=== PATIENT | male | born 1970 | race Caucasian/White ===

== ENCOUNTER 2017-02-20 17:04 | Emergency (ER) | payer BC, SELFPAY ==
[2017-02-20 17:49] VITALS: BP 158/90; PULSE 99; RESP 22; TEMP 37.1; O2SAT 95; BMI 46.6
[2017-02-20 18:02] LABS: UTC Influenza A Antigen Positive (Negative)
[2017-02-20 18:03] LABS: UTC Influenza B Antigen Negative (Negative)
--- NOTE | 2017-02-20 18:12 | HMH.EDUTC ---
[facility] [place]ression: Influenza A Disposition: Home, Self-Care Condition on Discharge: Good Instructions: DI for Influenza -- Adult Additional Instructions: * Start Tamiflu YESENIA if you are going to take it. Discussed risks and possible benefits. * Lots of rest * Increase fluids, water, gatorade, powerade, pedialyte if /toddler/child * Monitor Temp. Tylenol every 4 hours as needed no more then 5 times a day or 4000mg in 24 hours and/or ibuprofen every 6 hours as needed no more then 3200mg in 24 hours (as long as your primary care doctor has told you that it is ok to take both) for fever/aches/pain. ER if fever no less than 101 despite tylenol and Ibuprofen * You (or your child) are contagious until no fever, aches, chills x 24 hours without medication for symptoms. Prescriptions: Oseltamivir Phosphate [Tamiflu 75mg Capsule] 75 mg PO BID #10 cap Referrals: Manuel Hall MD [Primary Care Provider] - (IMMEDIATELY for new or worsening symptoms, improvement followed by suddenly feeling worse OR no noticeable improvement over the next 48-72 hours. 911 for difficulty breathing ) Time of Disposition: 18:22 Medical Decision Making Vital Signs: 02/20/17 17:49 Temperature 98.8 F Temperature Source Oral Pulse Rate [Right Brachial] 99 H Respiratory Rate 22 Blood Pressure [Right Arm] 158/90 Blood Pressure Mean [Right Arm] 112 Blood Pressure Source [Right Arm] Automatic Cuff Blood Pressure Position [Right Arm] Sitting 02 Sat by Pulse Oximetry 95 Oxygen Delivery Method Room Air - Lab Data Lab results reviewed: Yes: I reviewed the patient's lab results. Lab Results 02/20/17 17:37: Influenza Type A Ag Positive A, Influenza Type B Ag Negative - Josse Inquiry Pt receiving controlled substance: No [facility] [place] - General Stated complaint: fever,body pain Time Seen by Provider: 02/20/17 18:00 Mode of Arrival: Ambulatory Source of Information: Patient Limitations: No Limitations Description of Symptoms (Recalled from Triage Doc. by RN): pt c/o cough, bodyache HEENT Symptoms (Recalled from RN notes): No Resp Symptoms (Recalled from RN notes): Yes (cough) Skin Symptoms (Recalled from RN notes): No MS Symptoms (Recalled from RN notes): Yes (bodyaches) Functional Status (Recalled from RN notes): n/a - History of Present Illness Provider Complaint: c/o aches, chills, sore throat, skin hurts. Started last night like a light switch . 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 Nyquil last night helped. - Related Data Previous Rx's Medication Instructions Recorded Oseltamivir Phosphate [Tamiflu 75 mg PO BID #10 cap 02/20/17 75mg Capsule] Allergies Allergy/AdvReac Type Severity Reaction Status Date / Time No Known Allergies Allergy Unverified 01/26/17 14:53 - Worker's Comp Is this a Worker's Comp case?: No [facility] History I have reviewed the patient's past medical history: Yes (gout, hypothyroid) Other Surgeries: Yes: Other (vasectomy and heart cath) - *Social History Smoking Status: Never smoker Alcohol Intake: never - Psychiatric History Expresses thoughts of harming self/others: None Suicide Plan Description: No Plan ROS Obtained: Yes Systems reviewed as appropriate & no additional complaints - Constitutional Constitutional: Denies anorexia, Reports body ache, Reports chills, Reports fatigue - Eyes Eyes: Denies change in vision, Denies eye pain - ENT Ears, Nose, Mouth, and Throat: Denies difficulty swallowing, Reports otalgia (w/ swallowing), Reports nasal congestion, Reports nasal discharge, Reports pain with swallowing, Reports post nasal drip, Denies sinus pain, Reports sinus pressure, Reports sore throat, Denies throat swelling - Cardiovascular Cardiovascular: Denies chest pain, Denies irregular heart rhythm - Respiratory Respiratory: No chest congestion, Yes non-productive cough, No dyspnea, No wheezing - Gastrointestinal Gastr
--- NOTE | 2017-02-20 18:20 | ED_ITS ---
[facility] [place] Disposition Clinical Impression: Influenza A Disposition: Home, Self-Care Condition on Discharge: Good Instructions: DI for Influenza -- Adult Additional Instructions: * Start Tamiflu YESENIA if you are going to take it. Discussed risks and possible benefits. * Lots of rest * Increase fluids, water, gatorade, powerade, pedialyte if /toddler/child * Monitor Temp. Tylenol every 4 hours as needed no more then 5 times a day or 4000mg in 24 hours and/or ibuprofen every 6 hours as needed no more then 3200mg in 24 hours (as long as your primary care doctor has told you that it is ok to take both) for fever/aches/pain. ER if fever no less than 101 despite tylenol and Ibuprofen * You (or your child) are contagious until no fever, aches, chills x 24 hours without medication for symptoms. Prescriptions: Oseltamivir Phosphate [Tamiflu 75mg Capsule] 75 mg PO BID #10 cap Referrals: Manuel Hall MD [Primary Care Provider] - (IMMEDIATELY for new or worsening symptoms, improvement followed by suddenly feeling worse OR no noticeable improvement over the next 48-72 hours. 911 for difficulty breathing ) Time of Disposition: 18:22 Medical Decision Making Vital Signs: 02/20/17 17:49 Temperature 98.8 F Temperature Source Oral Pulse Rate [Right Brachial] 99 H Respiratory Rate 22 Blood Pressure [Right Arm] 158/90 Blood Pressure Mean [Right Arm] 112 Blood Pressure Source [Right Arm] Automatic Cuff Blood Pressure Position [Right Arm] Sitting 02 Sat by Pulse Oximetry 95 Oxygen Delivery Method Room Air - Lab Data Lab results reviewed: Yes: I reviewed the patient's lab results. Lab Results 02/20/17 17:37: Influenza Type A Ag Positive A, Influenza Type B Ag Negative - Josse Inquiry Pt receiving controlled substance: No [facility] [place] HPI - General Stated complaint: fever,body pain Time Seen by Provider: 02/20/17 18:00 Mode of Arrival: Ambulatory Source of Information: Patient Limitations: No Limitations Description of Symptoms (Recalled from Triage Doc. by RN): pt c/o cough, bodyache HEENT Symptoms (Recalled from RN notes): No Resp Symptoms (Recalled from RN notes): Yes (cough) Skin Symptoms (Recalled from RN notes): No MS Symptoms (Recalled from RN notes): Yes (bodyaches) Functional Status (Recalled from RN notes): n/a - History of Present Illness Provider Complaint: c/o aches, chills, sore throat, skin hurts. Started last night like a light switch . 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 Nyquil last night helped. - Related Data Previous Rx's Medication Instructions Recorded Oseltamivir Phosphate [Tamiflu 75 mg PO BID #10 cap 02/20/17 75mg Capsule] Allergies Allergy/AdvReac Type Severity Reaction Status Date / Time No Known Allergies Allergy Unverified 01/26/17 14:53 - Worker's Comp Is this a Worker's Comp case?: No [facility] History I have reviewed the patient's past medical history: Yes (gout, hypothyroid) Other Surgeries: Yes: Other (vasectomy and heart cath) - *Social History Smoking Status: Never smoker Alcohol Intake: never - Psychiatric History Expresses thoughts of harming self/others: None Suicide Plan Description: No Plan ROS Obtained: Yes Systems reviewed as appropriate & no additional complaints - Constitutional Constitutional: Denies anorexia, Reports body ache, Reports chills,
[2017-02-20 18:34] VITALS: BP 158/90; PULSE 68; RESP 16; TEMP 37.7; O2SAT 96
== END 2017-02-20 18:35 | disposition home or self-care (01) ==
PROVIDERS: Emergency Provider Nurse Practitioner Family; Family Provider Nurse Practitioner; PCP Family Medicine
DX: J09.X2 Influenza due to identified novel influenza A virus with other respiratory manifestations (principal)
CPT/HCPCS: 87804; 99202

== ENCOUNTER → 2017-10-24 09:43 | Outpatient (REF) | payer BC, SELFPAY | LOC: LAB 09:43 | PROVIDERS: Visit Provider Emergency Medicine | DX: J02.9 Acute pharyngitis, unspecified (principal) ==

== ENCOUNTER → 2018-07-21 09:02 | Outpatient (CLI) | payer BC, SELFPAY ==
[2018-07-21 11:07] LABS: Basophils # 0.1 K/mm3 (0-0.2); Basophils % 0.9 % (0.1-2.0); Eosinophils # 0.1 K/mm3 (0.0-0.4); Eosinophils % 0.8 % (0.1-12.0); Hematocrit 51.6 % (42.0-52.0); Hemoglobin 15.8 g/dL (14.1-18.0); Lymphocytes # 2.7 K/mm3 (0.7-4.5); Lymphocytes % 44.4 % (10-50); Mean Corpuscular HGB Conc 30.6 g/dL (31.8-35.4); Mean Corpuscular Hemoglobin 29.2 pg (27.0-31.2); Mean Corpuscular Volume 95.4 fl (80-94); Mean Platelet Volume 7.7 fl (7.4-10.4); Monocytes # 0.3 K/mm3 (0.1-1.0); Monocytes % 4.6 % (1.7-9.3); Neutrophils % 49.3 % (37.0-80.0); Platelet Count 233 K/mm3 (142-424); Red Blood Count 5.41 M/mm3 (4.60-6.20); Red Cell Distribution Width 15.5 % (11.5-17.5); White Blood Count 6.1 K/mm3 (4.8-10.8)
[2018-07-21 12:40] LABS: Anion Gap 13.5 mEq/L (5-15); Blood Urea Nitrogen 18 mg/dL (7-18); Calcium 9.3 mg/dL (8.5-10.1); Carbon Dioxide 27 mmol/L (21.0-32.0); Chloride 106 mmol/L (98-107); Creatinine,Serum 0.84 mg/dL (0.70-1.30); Estimated Glomerular Filt Rate 97 ml/min (>60); GFR (African American) 118 ML/MIN (>60); Glucose 68 mg/dL (74-106); Potassium 4.5 mmoL/L (3.5-5.1); Sodium 142 mmol/L (136-145)
== END ==
PROVIDERS: Visit Provider Colon & Rectal Surgery
DX: K63.2 Fistula of intestine (principal)
CPT/HCPCS: 36415; 80048; 85025

== ENCOUNTER → 2020-03-18 16:12 | Outpatient (CLI) | payer BC, SELFPAY | PROVIDERS: PCP Family Medicine; Visit Provider Family Medicine | DX: Z20.822 Contact with and (suspected) exposure to COVID-19 (principal) | CPT/HCPCS: U0003 ==

== ENCOUNTER 2020-03-31 16:42 | Emergency (ER) | payer BC, SELFPAY ==
[2020-03-31 17:30] VITALS: BP 137/87; PULSE 82; RESP 18; TEMP 37.1; O2SAT 99; BMI 36.2
--- NOTE | 2020-03-31 18:09 | HMH.EDUTC ---
[facility] [place] Dis[place] Clinical Impression: Encounter for laboratory testing for COVID-19 virus, Viral syndrome Disposition: Home, Self-Care Condition on Discharge: Good Instructions: Ondansetron, DI for COVID-19 (Suspected or Confirmed ), Coronavirus Disease 2019, Preventing the Spread of Coronavirus Discharge Instructions Additional Instructions: *Monitor Temp, Over the counter Motrin or Tylenol as directed/as needed Tylenol every 4 hours and Motrin every 6 hours (as long as your family doctor has told you that you can take it) for fever or pain. and straight to ER if unable to lower temp less than 101.0 after medication given *Warm salt water gargles may help to soothe the throat *Throat Lozenges *Warm fluids like tea with honey may help to soothe the throat *Sleep elevated *Humidifier/Vaporizer Follow up IMMEDIATELY for new or worsening symptoms or no Noticeable improvement over the next 48-72 hours. 911 for difficulty breathing or swallowing You were tested for today for COVID19 your test result should be back in the next 24-48 hours, you may call to the [facility] to see if your test results are back in the next 48 hours [phone] [facility] hours are 9am-9pm You was given a handout with instructions for Self Quarantine and Self isolation for while you wait on test results and what to do if they are positive If you are positive the Health Dept will be contacting you also Prescriptions: Ondansetron [Zofran 4mg ODT] 4 mg PO TIDP PRN #6 tab PRN Reason: Nausea Transmission Status: Pending to [facility] Referrals: Manuel Hall MD [Primary Care Provider] - As needed Forms: Work/School Release Time of Disposition: 18:13 Medical Decision Making - Josse Inquiry Pt receiving controlled substance: No Josse was queried for this patient: No Vital Signs: 03/31/20 17:30 Temperature 98.7 F Temperature Source Oral Pulse Rate [Right Brachial] 82 Respiratory Rate 18 Blood Pressure [Right Arm] 137/87 Blood Pressure Mean [Right Arm] 103 Blood Pressure Source [Right Arm] Automatic Cuff Blood Pressure Position [Right Arm] Sitting 02 Sat by Pulse Oximetry 99 Oxygen Delivery Method Room Air Orders (Tests/Meds): ORDERS Category Date Time Status Covid-19 Nasal PCR ([facility]) Routine Lab 03/31/20 17:28 Received [facility] [place] HPI - General Stated complaint: SYMPTOMS Time Seen by Provider: 03/31/20 18:09 Mode of Arrival: Ambulatory Source of Information: Patient Limitations: No Limitations Description of Symptoms (Recalled from Triage Doc. by RN): PATIENT REPORTS HE WOKE UP THIS MORNING WITH HEADACHE, BODY ACHES, FEVER, NAUSEA, AND FATIGUE. HIS HAD HER SECOND COVID VACCINE ON WEDNESDAY AND WAS SICK YESTERDAY AND LAST NIGHT HEENT Symptoms (Recalled from RN notes): Yes Resp Symptoms (Recalled from RN notes): No Skin Symptoms (Recalled from RN notes): No MS Symptoms (Recalled from RN notes): No Functional Status (Recalled from RN notes): WNL - History of Present Illness Provider Complaint: Patient states that he was suppose to have second COVID vaccine on Wednesday but had had flu vaccine a week ago so was unable to take it State that his took hers and for a couple days wasnt feeling well States that he started feeling bad yesterday with body aches and chills and this morning woke up still having body aches, chills, headache and nausea so he came in to get tested - Related Data Home Medications Medication Instructions Recorded Confirmed allopurinol 300 mg tablet 300 mg PO DAILY 30 Days #30 tab 10/23/17 03/31/20 levothyroxine 75 mcg tablet 75 mcg PO DAILY 30 Days #30 tab 10/23/17 03/31/20 Previous Rx's Medication Instructions Recorded Ondansetron [Zofran 4mg ODT] 4 mg PO TIDP PRN #6 tab 03/31/20 Allergies Allergy/AdvReac Type Severity Reaction Status Date / Time No Known Allergies Allergy Verified 10/23/17 12:44 - Worker's Comp Is this a Worker's Comp case?: No [facility] History - Hepatitis A
[2020-03-31 18:19] VITALS: BP 137/87; PULSE 82; RESP 18; TEMP 37.1; O2SAT 99
--- NOTE | 2020-04-01 09:31 | PC.NURSE ---
patient notified of positive covid results
== END 2020-03-31 18:21 | disposition home or self-care (01) ==
PROVIDERS: Emergency Provider Nurse Practitioner; PCP Family Medicine
DX: U07.1 COVID-19 (principal); E11.9 Type 2 diabetes mellitus without complications; E03.9 Hypothyroidism, unspecified; Z79.899 Other long term (current) drug therapy
CPT/HCPCS: 99202; G0463; U0003

== ENCOUNTER 2020-04-03 07:57 | Outpatient (CLI) | payer BC, SELFPAY ==
[2020-04-03] VITALS (8 sets, daily range): BP systolic 126–155; BP diastolic 81–91; PULSE 58–78; RESP 17–20; TEMP 36.6–36.9; O2SAT 95–98
== END 2020-04-03 10:11 | disposition home or self-care (01) ==
PROVIDERS: PCP Family Medicine; Visit Provider Family Medicine
DX: U07.1 COVID-19 (principal)
CPT/HCPCS: 96365

== ENCOUNTER 2020-05-23 16:08 | Emergency (ER) | payer BC, SELFPAY ==
[2020-05-23 16:37] LABS: UTC Strep Screen (Rapid) Negative (Negative)
[2020-05-23 16:42] VITALS: RESP 16; TEMP 37.1; O2SAT 99; BMI 36.6
--- NOTE | 2020-05-23 16:43 | HMH.EDUTC ---
[facility] Disposition Clinical Impression: Pharyngitis Qualifiers: Pharyngitis/tonsillitis etiology: unspecified etiology Qualified Code(s): J02.9 - Acute pharyngitis, unspecified Disposition: Home, Self-Care Condition on Discharge: Good Instructions: Sore Throat, DI for Pharyngitis/Tonsillopharyngitis -- Adult Additional Instructions: Drink plenty of fluids. Take tylenol or ibuprofen for pain or fever. Take the medications as directed. Follow up with your regular doctor. GO TO THE ER FOR ANY WORSENING SYMPTOMS Prescriptions: Amoxicillin/Potassium Clav [Augmentin 875-125 Tablet] 1 tab PO Q12H 10 Days #20 tab Transmission Status: Received by [facility] predniSONE [Deltasone 10mg tablet] 10 mg PO BID 3 Days #6 tab Transmission Status: Received by [facility] Referrals: Manuel Hall MD [Primary Care Provider] - Forms: Work/School Release Time of Disposition: 16:52 Medical Decision Making - Medical Records Medical records reviewed: No: I reviewed the patient's medical records. - Josse Inquiry Pt receiving controlled substance: No Vital Signs: 05/23/20 16:42 05/23/20 16:52 Temperature 98.7 F 98.7 F Temperature Source Oral Oral Pulse Rate 90 Respiratory Rate 16 14 Blood Pressure 131/85 02 Sat by Pulse Oximetry 99 Oxygen Delivery Method Room Air Room Air - Lab Data Lab results reviewed: Yes: I reviewed the patient's lab results. Lab Results 05/23/20 16:30: Strep Scn Rapid Clinic Negative Orders (Tests/Meds): ORDERS Category Date Time Status Strep Screen Confirmation Stat Micro 05/23/20 16:30 Received [facility] HPI - General Stated complaint: sore throat Time Seen by Provider: 05/23/20 16:43 - History of Present Illness Provider Complaint: He states that for the past 2 days he has had a worsening sore throat. 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 He has had covid-19 and he has had the covid-19 vaccine in the past. He states that he does not feel like he has covid-19. - Related Data Home Medications Medication Instructions Recorded Confirmed allopurinol 300 mg tablet 300 mg PO DAILY 30 Days #30 tab 10/23/17 03/31/20 levothyroxine 75 mcg tablet 75 mcg PO DAILY 30 Days #30 tab 10/23/17 03/31/20 Previous Rx's Medication Instructions Recorded Ondansetron [Zofran 4mg ODT] 4 mg PO TIDP PRN #6 tab 03/31/20 Amoxicillin/Potassium Clav 1 tab PO Q12H 10 Days #20 tab 05/23/20 [Augmentin 875-125 Tablet] predniSONE [Deltasone 10mg tablet] 10 mg PO BID 3 Days #6 tab 05/23/20 Allergies Allergy/AdvReac Type Severity Reaction Status Date / Time No Known Allergies Allergy Verified 10/23/17 12:44 [facility] History - Hepatitis A Screen Attestation statement:: This patient has been screened for Hepatitis A risk factors. I have reviewed the patient's past medical history: Yes Medical History: Reports:: Diabetes Mellitus Type 2 Other Medical History: Reports: Hypothyroidism Comment: Gout Other Surgeries: Yes: Other Comment: vasectomy - Social History Smoking Status: Never smoker Alcohol Intake: never Alcohol Intake Frequency:: holidays/special occasions only Substance Use Type: denies use Occupational Status: employed ROS Obtained: Yes All systems reviewed & no additional complaints - Constitutional Constitutional: Denies body ache, Reports chills, Denies fever(s), Reports poor appetite, Reports malaise - Eyes Eyes: Denies eye discharge - ENT Ears, Nose, Mouth, and Throat: Reports as per HPI - Cardiovascular Cardiovascular: Denies chest pain - Respiratory Respiratory: Denies chest congestion, Reports cough, Denies dyspnea, Denies stridor, Denies wheezing Physical Exam - General General appearance: alert, in no apparent distress - Head Head exam: atraumatic, normocephalic, normal inspection - Eye Eye exam: Present: normal appearance, PERRL, EOMI - ENT ENT exam
[2020-05-23 16:52] VITALS: BP 131/85; PULSE 90; RESP 14; TEMP 37.1; O2SAT 99
== END 2020-05-23 16:54 | disposition home or self-care (01) ==
PROVIDERS: Emergency Provider Nurse Practitioner Family; PCP Family Medicine
DX: J02.9 Acute pharyngitis, unspecified (principal); E03.9 Hypothyroidism, unspecified; E11.9 Type 2 diabetes mellitus without complications; Z79.899 Other long term (current) drug therapy
CPT/HCPCS: 87880; 99202; G0463

== ENCOUNTER 2020-10-07 09:01 | Emergency (ER) | payer BC, SELFPAY ==
[2020-10-07 09:05] VITALS: BP 137/83; PULSE 91; RESP 20; TEMP 37; O2SAT 97; BMI 34.8
[2020-10-07 09:39] VITALS: BP 137/83; PULSE 91; RESP 20; TEMP 37; O2SAT 97
--- NOTE | 2020-10-07 09:39 | HMH.EDUTC ---
[facility] [place] Impression: Viral syndrome, Encounter for laboratory testing for COVID-19 virus Disposition: Home, Self-Care Condition on Discharge: Good Instructions: DI for COVID-19 (Suspected or Confirmed ), Preventing the Spread of Coronavirus Discharge Instructions Additional Instructions: *Monitor Temp, Over the counter Motrin or Tylenol as directed/as needed Tylenol every 4 hours and Motrin every 6 hours (as long as your family doctor has told you that you can take it) for fever or pa-in. and straight to ER if unable to lower temp less than 101.0 after medication given *Warm salt water gargles may help to soothe the throat *Throat Lozenges *Warm fluids like tea with honey may help to soothe the throat *Sleep elevated *Humidifier/Vaporizer Over the counter Cough mediacations like Robitussin may help with cough if you can take it Your throat swab was sent for culture. Those results are typically sent to your primary care. Be sure to follow up in 2-3 days with your family doctor/primary care physician if no improvement so they can review those result and treat if necessary. If you don?t have a primary care doctor, I recommend you get one but in the mean time, you will have to return to a walk in clinic Follow up IMMEDIATELY for new or worsening symptoms or no Noticeable improvement over the next 48-72 hours. 911 for difficulty breathing or swallowing You were tested for today for COVID19 your test result should be back in the next 24-48 hours, [facility] the [facility] to see if your test results are back in the next 48 it may say detected that means your result is positive or not detected if you are negative.You was given handout instructions on how log on and see your results. If you do not have internet access you may call the [facility] for your results [phone] You was given a handout with instructions for Self Quarantine and Self isolation for while you wait on test results and what to do if they are positive If you are positive the Health Dept will be contacting you also Make sure to take your Vitamins Vit. C Vit D and Zinc if you can take them Referrals: Manuel Hall MD [Primary Care Provider] - As needed Forms: Work/School Release Medical Decision Making - Josse Inquiry Pt receiving controlled substance: No Josse was queried for this patient: No Vital Signs: 10/07/20 09:05 Temperature 98.6 F Temperature Source Oral Pulse Rate [Right Brachial] 91 H Respiratory Rate 20 Blood Pressure [Right Arm] 137/83 Blood Pressure Mean [Right Arm] 101 Blood Pressure Source [Right Arm] Automatic Cuff Blood Pressure Position [Right Arm] Sitting 02 Sat by Pulse Oximetry 97 Oxygen Delivery Method Room Air - Lab Data Lab results reviewed: Yes: I reviewed the patient's lab results. Orders (Tests/Meds): ORDERS Category Date Time Status Covid-19 Nasal PCR ([facility]) Routine Lab 10/07/20 09:20 [place] [facility] [place] - General Stated complaint: body aches, headache, soa, Time Seen by Provider: 10/07/20 09:39 Mode of Arrival: Ambulatory Source of Information: Patient Limitations: No Limitations Description of Symptoms (Recalled from Triage Doc. by RN): PATIENT C/O HEADACHE, COUGH, BODY ACHES, AND LOW-GRADE FEVER. 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
[2020-10-07 21:16] LABS: UTC Strep Screen (Rapid) Negative (Negative)
--- NOTE | 2020-10-08 13:13 | PC.NURSE ---
pt aware of positive results
== END 2020-10-07 09:50 | disposition home or self-care (01) ==
PROVIDERS: Emergency Provider Nurse Practitioner; PCP Family Medicine
DX: U07.1 COVID-19 (principal); B34.9 Viral infection, unspecified; E03.9 Hypothyroidism, unspecified; E11.9 Type 2 diabetes mellitus without complications; Z79.899 Other long term (current) drug therapy
CPT/HCPCS: 87880; 99203; G0463; U0003

== ENCOUNTER 2021-03-01 13:11 | Emergency (ER) | payer BC, SELFPAY ==
--- NOTE | 2021-03-01 14:11 | XR_ITS ---
PROCEDURE INFORMATION: Exam: XR Left Foot Exam date and time: 03/01/2021 2:11 PM Age: 51 years old Clinical indication: Pain; Foot; Left TECHNIQUE: Imaging protocol: XR Left foot. Views: 3 or more views. COMPARISON: CR [id number] XR foot LT min 3V 02/24/2018 6:22 PM FINDINGS: Bones/joints: Mild osteoarthritis, as manifested predominantly by decreased joint space and marginal osteophyte formation. This is predominantly affecting the tibiotalar joint and tarsal metatarsal joints. There is mild osteoarthritis to the 1st metatarsophalangeal joint appreciated as well. There is a tiny plantar calcaneal spur. Small posterior calcaneal enthesophyte. There is no evidence of acutely displaced fractures. There is no evidence of joint dislocation. No aggressive osseous lesions. Soft tissues: There is no significant soft tissue swelling. IMPRESSION: Mild diffuse osteoarthritis without acute skeletal pathology.
[2021-03-01 14:12] VITALS: BP 143/93; PULSE 62; RESP 14; TEMP 36.6; O2SAT 98; BMI 37.3
--- NOTE | 2021-03-01 14:25 | HMH.EDUTC ---
[facility] [place] Disposition Clinical Impression: Foot pain, left Disposition: Home, Self-Care Condition on Discharge: Good Instructions: DI for Foot Pain Additional Instructions: freeze bottle of water , roll on bottom of foot with socks on 20 mins every hour for comfort steroids motrin as needed follow up with Dr Luu- call wednesday for appointment if symptoms worsen return Prescriptions: predniSONE [Prednisone 20mg Tab] 20 mg PO BID #10 tab Prescription Printed Referrals: Manuel Hall MD [Primary Care Provider] - Linda Luu DPM [Staff Physician] - Time of Disposition: 14:51 Medical Decision Making - Josse Inquiry Pt receiving controlled substance: No Vital Signs: 03/01/21 14:12 Temperature 97.9 F Temperature Source Temporal Artery Scan Pulse Rate [Left] 62 Respiratory Rate 14 Blood Pressure [Right Arm] 143/93 H Blood Pressure Mean [Right Arm] 109 02 Sat by Pulse Oximetry 98 Orders (Tests/Meds): ORDERS Category Date Time Status XR foot LT min 3V Stat Exams 03/01/21 14:11 Taken [facility] [place] HPI - General Chief complaint: Urgent Treatment Center Stated complaint: left foot pain Time Seen by Provider: 03/01/21 14:26 Mode of Arrival: Ambulatory Source of Information: Patient Limitations: No Limitations Description of Symptoms (Recalled from Triage Doc. by RN): pt c/o L foot pain. pt states the pain runs along the outside of his foot. no injury noted. x3 wks HEENT Symptoms (Recalled from RN notes): No Resp Symptoms (Recalled from RN notes): No Skin Symptoms (Recalled from RN notes): No MS Symptoms (Recalled from RN notes): Yes (L foot pain) Functional Status (Recalled from RN notes): wnl - History of Present Illness Provider Complaint: 51 yr old male presents with c/o L foot pain. pt states the pain runs along the outside of his foot. no injury noted. x3 wks, hx of gout. pt states it does not feel like a gout flare, pt states pain improves if he doesnt wear shoes - Related Data Home Medications Medication Instructions Recorded Confirmed allopurinol 300 mg tablet 300 mg PO DAILY 30 Days #30 tab 10/23/17 10/07/20 levothyroxine 75 mcg tablet 75 mcg PO DAILY 30 Days #30 tab 10/23/17 10/07/20 Previous Rx's Medication Instructions Recorded predniSONE [Prednisone 20mg 20 mg PO BID #10 tab 03/01/21 Tab] Allergies Allergy/AdvReac Type Severity Reaction Status Date / Time No Known Allergies Allergy Verified 10/23/17 12:44 - Worker's Comp Is this a Worker's Comp case?: No [facility] History - Hepatitis A Screen Drug use history?: No High risk sexual behaviors?: No History of sexually transmitted infection?: No Currently employed?: No Childcare worker?: No Do you have indoor plumbing?: Yes Do you have electricity?: Yes Attestation statement:: This patient has been screened for Hepatitis A risk factors. I have reviewed the patient's past medical history: Yes Medical History: Reports:: Diabetes Mellitus Type 2 Other Medical History: Reports: Hypothyroidism Comment: Gout Other Surgeries: Yes: Other Comment: vasectomy - Social History Smoking Status: Never smoker Alcohol Intake: never Alcohol Intake Frequency:: holidays/special occasions only Substance Use Type: denies use Occupational Status: employed ROS Obtained: Yes Systems reviewed as appropriate & no additional complaints - Constitutional Constitutional: Reports system reviewed and no additional complaints, except as docu, Denies fever(s) - Eyes Eyes: Reports system reviewed and no additional complaints, except as docu, Denies dry eyes - ENT Ears, Nose, Mouth, and Throat: Reports system reviewed and no additional complaints, except as docu, Denies sore throat - Cardiovascular Cardiovascular: Reports system reviewed and no additional complaints, except as docu, Denies chest pain - Respiratory Respiratory: Reports system reviewed and no additional complaints, except as docu, Denies cough - Gastroi
[2021-03-01 14:57] VITALS: BP 143/93; PULSE 62; RESP 14; TEMP 36.6
== END 2021-03-01 15:00 | disposition home or self-care (01) ==
PROVIDERS: Emergency Provider Nurse Practitioner Family; PCP Family Medicine
DX: M79.672 Pain in left foot (principal); E11.9 Type 2 diabetes mellitus without complications
CPT/HCPCS: 73630; 99202; G0463

== ENCOUNTER → 2021-04-26 11:12 | Outpatient (CLI) | payer BC, SELFPAY | PROVIDERS: PCP Internal Medicine Adolescent Medicine; Visit Provider Surgery | DX: Z01.812 Encounter for preprocedural laboratory examination (principal); Z11.52 Encounter for screening for COVID-19; Z12.11 Encounter for screening for malignant neoplasm of colon | CPT/HCPCS: C9803; U0003; U0005 ==

== ENCOUNTER 2021-04-29 10:06 | Day surgery (SDC) | payer BC, SELFPAY ==
[2021-04-25 14:24] VITALS: BMI 36.2
[2021-04-29] VITALS (7 sets, daily range): BP systolic 109–147; BP diastolic 58–89; PULSE 54–83; RESP 16–18; TEMP 36.3–36.6; O2SAT 93–100
--- NOTE | 2021-04-29 10:13 | P.PN_ITS ---
[facility] Anesthesia Checklist - Patient Identification Patient Identification: Arm Band - Structural Data Admitted From: Home Planned Operative Procedure/s: Colonoscopy Consent for Planned Operative Procedure(s) Verified: Yes - NPO Status Verified Time NPO: 05:00 (Prep) - Airway Assessment C-Spine Mobility Assessed: Yes TMJ Mobility Assessed: Yes Dentition: Good Dentition - Neurological Assessment Level of Consciousness: Awake Hx Seizures: No Numbness or tingling in extremities: No - Anesthesia Plan Anesthesia Risk discussed: Yes Anesthesia Plan: Verified ASA Class: II Anesthesia Type: MAC [facility] History I have reviewed the patient's past medical history: Yes Medical History: Reports:: Anxiety Denies:: Cancer, Diabetes Mellitus Type 1, Internal Pacemaker, MRSA *Have you ever received a pneumonia vaccine?: No *Have you received a flu vaccine this season?: Yes Other Medical History: Reports: Hypothyroidism Anesthesia experience/problems:: None Other Surgeries: Yes: Other. No: Pacemaker Amputation: No - *Social History Last grade of school completed: Advanced degree Smoking Status: Never smoker Alcohol Intake: never Alcohol Intake Frequency:: holidays/special occasions only Substance Use Type: denies use *Occupational Status:: employed *Travel in the last 8 weeks: None Family Hx:: Unable to obtain
--- NOTE | 2021-04-29 11:50 | HMH.SCOPE ---
- Procedure: Date: 04/29/21 Patient Date of :: 1970 Procedure Performed:: Colonoscopy Indications:: Screening (history of limited colonoscopy secondary to poor bowel preparation (outside facility)) Performing Provider:: Ayo Mariscal MD Referring Provider:: . Sedation:: Monitored anesthesia care Procedure:: After informed consent was obtained the patient was taken to the endoscopy suite. Sedation ensued after the patient was transferred to the left lateral decubitus position. Pulse, blood pressure, and oxygen saturation were monitored throughout the procedure. Digital rectal exam revealed no significant abnormality. The colonoscope was placed in position. The entire colon was evaluated. The colonoscope was carefully removed and the patient was transferred to recovery in stable condition. Please see findings and specimens below for detail. Findings:: Bowel preparation moderate Fairly severe tortuosity/spasticity Specimens:: None Recommendations:: Repeat colonoscopy in 2-3 years with extended bowel preparation secondary to persistent limitations in visualization (moderate to poor bowel preparation, spasticity, and tortuosity) Complications:: No immediate Estimated blood obtained (mL): 0
== END 2021-04-29 12:34 | disposition home or self-care (01) ==
LOC: OUTP 10:07
PROVIDERS: PCP Internal Medicine Adolescent Medicine; Visit Provider Surgery
PROC: 0DJD8ZZ Inspection of Lower Intestinal Tract, Via Natural or Artificial Opening Endoscopic (ICD-10-PCS; CPT 45378; principal; 2021-04-29 11:30)
DX: Z12.11 Encounter for screening for malignant neoplasm of colon (principal); K56.2 Volvulus; K58.9 Irritable bowel syndrome, unspecified
CPT/HCPCS: 45378; J2704

== ENCOUNTER 2022-07-03 09:36 | Emergency (ER) | payer BC, SELFPAY ==
[2022-07-03 09:45] VITALS: BP 150/90; PULSE 76; RESP 18; TEMP 36.6; O2SAT 98; BMI 41.4
--- NOTE | 2022-07-03 09:53 | EXP.UTC ---
Discharge Plan Disposition Patient Disposition: Home, Self-Care Prescriptions Prescriptions: New clindamycin HCl 300 mg capsule 300 mg PO TID 10 Days Qty: 30 0RF methylprednisolone [Medrol (Arian)] 4 mg tablets,dose pack 4 mg PO DIRECTED Qty: 21 0RF meloxicam 15 mg tablet 15 mg PO DAILY Qty: 10 0RF No Action allopurinol 300 mg tablet 300 mg PO DAILY 30 Days Qty: 30 levothyroxine 100 mcg Tablet 100 mcg PO DAILY Wegovy 1 mg/0.5 mL pen injector 1 mg SQ WEEKLY Label Comments: INJECT 1 SYRINGE SUBCUTANEOUSLY ONCE A WEEK Referrals Follow up/Referrals: Manuel Hall MD [Primary Care Provider] - See instructions Activity Restrictions/Add. Instructions Additional Instructions/Restrictions: Take all meds as prescribed until gone Take with food Return to [facility] if severe pain, fever, malaise, worsening redness/swelling, etc Clinical Impressions Clinical Impression: Acute pain of right knee Instructions Patient Instructions: DI for Knee Pain Discharge ED Provider: Carmen Maldonado [facility] [place] General Stated complaint: right knee pain, no accident Time Seen by Provider: 07/03/22 10:00 Description of Symptoms (Recalled from Triage Doc. by RN): Woke up 2 days ago with redness, bruising to right knee. Does not recall any injury or insect bite, etc. He does have a history of gout but this is different. Has not responded to ice, heat. History of Present Illness Provider Complaint: Woke up 2 days ago with redness, bruising to right knee. Does not recall any injury or insect bite, etc. He does have a history of gout but this is different. Has not responded to ice, heat. Location: right and lower extremity Radiation: non-radiation Severity: moderate Severity scale (1-10): 4 Quality: aching Consistency: constant Relieving factors: immobilization Exacerbating factors: movement Treatments prior to arrival: cold therapy and heat therapy Related Data Home Medications Medication Instructions Recorded Confirmed allopurinol 300 mg tablet 300 mg PO DAILY GOUT 30 days #30 10/23/17 07/03/22 tabs levothyroxine 100 mcg tablet 100 mcg PO DAILY Supplement 07/03/22 07/03/22 semaglutide (weight loss) 1 mg/0.5 1 mg SQ WEEKLY Weight loss 07/03/22 07/03/22 mL subcutaneous pen injector (Wegovy) Previous Rx's Medication Instructions Recorded clindamycin HCl 300 mg capsule 300 mg PO TID 10 days #30 caps 07/03/22 meloxicam 15 mg tablet 15 mg PO DAILY #10 tabs 07/03/22 methylprednisolone 4 mg tablets in 4 mg PO DIRECTED #21 tabs 07/03/22 a dose pack (Medrol (Arian)) Allergies Allergy/AdvReac Type Severity Reaction Status Date / Time No Known Allergies Allergy Verified 06/04/21 08:05 [facility] Disclaimer: The information contained in this section may have been updated after the patient was seen, as this information can be updated by other users. Social History Smoking Status: Never smoker alcohol intake: current substance use type: denies use current occupational status: employed Travel in the last 8 weeks: None caffeine: No ROS Obtained: Yes All systems reviewed & no additional complaints except as documented Musculoskeletal Musculoskeletal: Reports arthralgias, Reports joint stiffness and Reports joint swelling Physical Exam General General appearance: alert and in no apparent distress Head Head exam: atraumatic, normocephalic and normal inspection Eye Eye exam: Present normal appearance, PERRL and EOMI ENT ENT exam: Present normal exam, normal oropharynx, mucous membranes moist, TM's normal bilaterally and normal external ear exam Neck Neck exam: Present normal inspection, full ROM and trachea midline; Absent meningismus or lymphadenopathy Chest Chest inspection: Present normal inspection and symmetric chest wall rise; Absent tenderness Respiratory Respiratory exam: Present normal lung sounds bilaterally; Absent respiratory
[2022-07-03 10:10] VITALS: BP 150/90; PULSE 76; RESP 18; TEMP 36.6; O2SAT 98
== END 2022-07-03 10:13 | disposition home or self-care (01) ==
PROVIDERS: Emergency Provider Physician Assistant; PCP Family Medicine
DX: M25.561 Pain in right knee (principal)
CPT/HCPCS: 99212; 99214; G0463

== ENCOUNTER → 2022-12-24 15:33 | Outpatient (CLI) | payer BC, SELFPAY ==
[2022-12-24 17:02] LABS: Chloride 105 mmol/L (98-107); Potassium 4.1 mmoL/L (3.5-5.1); Sodium 142 mmol/L (136-145)
[2022-12-24 17:05] LABS: Alanine Aminotransferase 21 U/L (12-78); Albumin Level 4.3 g/dl (3.5-5.0); Albumin/Globulin Ratio 1.7 (1.1-1.8); Alkaline Phosphatase 82 U/L (38-126); Anion Gap 12.1 mEq/L (5-15); Aspartate Amino Transferase 31 U/L (17-59); Bilirubin,Total 0.4 mg/dl (0.2-1.3); Blood Urea Nitrogen 21 mg/dl (9-20); Calcium 9.2 mg/dl (8.4-10.2); Carbon Dioxide 29 mmol/L (22.0-30.0); Estimated Glomerular Filt Rate 78 ml/min (>60); GFR (African American) 95 ML/MIN (>60); Globulin 2.5 g/dL (1.3-3.2); Glucose 90 mg/dl (74-100); Total Protein,Serum 6.8 g/dl (6.3-8.2)
[2022-12-24 18:37] LABS: Hemoglobin A1C 5.3 % (4.0-6.0)
== END ==
LOC: LAB 15:33
PROVIDERS: Internal Medicine Endocrinology, Diabetes & Metabolism; PCP Family Medicine; Visit Provider Family Medicine
DX: E78.00 Pure hypercholesterolemia, unspecified (principal); E66.01 Morbid (severe) obesity due to excess calories; Z68.37 Body mass index [BMI] 37.0-37.9, adult
CPT/HCPCS: 36415; 80053; 83036

== ENCOUNTER 2024-01-20 13:00 | Outpatient (CLI) | payer BC, SELFPAY ==
[2024-01-20 18:09] LABS: Coronavirus 19, PCR Not Detected (NotDetected); Influenza A, PCR Not Detected (NotDetected); Influenza B, PCR Not Detected (NotDetected)
== END 2024-01-20 23:59 | disposition home or self-care (01) ==
LOC: LAB.DROPOF 01-21 11:12
PROVIDERS: PCP Student in an Organized Health Care Education/Training Program; Visit Provider Student in an Organized Health Care Education/Training Program
DX: J02.9 Acute pharyngitis, unspecified (principal)
CPT/HCPCS: 87070; 87636

== ENCOUNTER 2024-05-31 16:49 | Outpatient (CLI) | payer BC, SELFPAY ==
[2024-05-31 17:57] LABS: Albumin Level 4.1 g/dl (3.5-5.0)
[2024-05-31 18:00] LABS: Alanine Aminotransferase 17 U/L (12-78); Alkaline Phosphatase 75 U/L (38-126); Aspartate Amino Transferase 27 U/L (17-59); Bilirubin,Direct 0.1 mg/dl (0.0-0.4); Bilirubin,Indirect 0.3 mg/dL (0.0-0.9); Bilirubin,Total 0.4 mg/dl (0.2-1.3); Bilirubin,Unconjugated 0.4 mg/dL (0.0-1.1); Total Protein,Serum 6.4 g/dl (6.3-8.2)
== END 2024-05-31 23:59 | disposition home or self-care (01) ==
LOC: LAB 16:50
PROVIDERS: PCP Family Medicine; Visit Provider Family Medicine
DX: Z51.81 Encounter for therapeutic drug level monitoring (principal)
CPT/HCPCS: 36415; 80076

== ENCOUNTER 2024-11-01 16:00 | Outpatient (RCR) | payer BC, SELFPAY | END 2024-11-01 23:59 | disposition home or self-care (01) | LOC: OT 16:00 | PROVIDERS: PCP Family Medicine; Visit Provider Physician Assistant | DX: M20.012 Mallet finger of left finger(s) (principal) | CPT/HCPCS: 97110; 97140; 97166 ==